=== PATIENT | female | born 1985 | race Caucasian/White ===

== ENCOUNTER 2022-10-18 06:17 | Emergency (ER) | payer BC ==
[~2022-10-18] VITALS: Ht 160 cm; Wt 68.0 kg
[2022-10-18 06:28] VITALS: BP 111/69; TEMP 98; O2SAT 98
[2022-10-18] MEDS ORDERED: DIPH50CA4 PO (06:43)
[2022-10-18] MEDS ORDERED: PRED50TA PO (06:43)
== END 2022-10-18 06:45 | disposition home or self-care (01) ==
LOC: ER 06:21
DX: R21 Rash and other nonspecific skin eruption (principal); Z88.1 Allergy status to other antibiotic agents